=== PATIENT | female | born 1965 | race Caucasian/White ===

== ENCOUNTER 2021-09-18 18:59 | Inpatient (IN) | payer OTHER ==
[2021-09-18 20:36] VITALS: BMI 23.7
[2021-09-18] MEDS ORDERED: ACETAMINOPHEN 325 MG TABLET (FP) PO PRN ×2 (21:53)
[2021-09-18] MEDS ORDERED: LOPERAMIDE HCL 2 MG CAPSULE PO PRN (21:53)
[2021-09-18] MEDS ORDERED: IBUPROFEN 400 MG TABLET (FP) PO PRN (21:53)
[2021-09-18] MEDS ORDERED: MAGNESIUM HYDROX 2400MG/30ML ORAL SUSPENSION 30 ML CUP PO PRN (21:53)
[2021-09-18] MEDS ORDERED: ONDANSETRON *ODT* 4 MG TABLET SL PRN (21:53)
[2021-09-18] MEDS ORDERED: MAGNESIUM CITRATE 300 ML BOTTLE PO PRN (21:53)
[2021-09-18] MEDS ORDERED: MAG HYDROX/AL HYDROX/SIMETH 30 ML UNIT-DOSE CUP PO PRN (21:53)
[2021-09-18] MEDS ORDERED: BISMUTH SUBSALICYLATE 524 MG/30 ML PO PRN (21:53)
[2021-09-18] MEDS ORDERED: MENTHOL/PHENOL 1 EACH UD MM PRN (21:53)
[2021-09-18] MEDS ORDERED: chlordiazePOXIDE HCL 25 MG CAPSULE PO PRN (21:56)
[2021-09-19] MEDS: THIAMINE HCL 100 MG TABLET (FP) PO SCH ×2 (02:05→22:11)
[2021-09-19] MEDS: chlordiazePOXIDE HCL 25 MG CAPSULE PO SCH ×5 (02:05→22:12)
[2021-09-19] MEDS: PRENATAL VITAMINS W/ FOLIC ACID TABLET (FP) PO SCH (10:22)
[2021-09-19] MEDS: hydrOXYzine PAMOATE 25 MG CAPSULE (FP) PO PRN ×2 (10:24→22:12)
[2021-09-19 10:53] LABS: HEMATOCRIT 36.3 % (32.4-45.2); HEMOGLOBIN 12.4 GM/dL (10.7-15.3); MCH 35.1 pg (25.7-33.7); MEAN CELL VOLUME 103.2 fl (80-96); MEAN PLT VOLUME 6.8 fl (7.5-11.1); PLATELET COUNT 225 10^3/uL (134-434); RBC 3.52 M/mm3 (3.60-5.2); WHITE BLOOD COUNT 4.4 K/mm3 (4.0-10.0)
[2021-09-19 11:03] LABS: CALCIUM 8.8 mg/dL (8.5-10.1)
[2021-09-19 11:04] LABS: ALBUMIN 3.9 g/dl (3.4-5.0); BLOOD UREA NITROGEN 14.4 mg/dL (7-18)
[2021-09-19 11:07] LABS: CREATININE 0.8 mg/dL (0.55-1.3)
[2021-09-19 11:09] LABS: TOT PROT 6.9 g/dl (6.4-8.2)
[2021-09-19] MEDS: LISINOPRIL 5 MG TABLET PO SCH (18:01)
[2021-09-19] MEDS: SPIRONOLACTONE 25 MG TABLET PO SCH (18:01)
[2021-09-19] MEDS: MELATONIN 5 MG TABLETS PO PRN (22:12)
[2021-09-19] MEDS: METHOCARBAMOL 500 MG TABLET PO PRN (22:12)
[2021-09-20] MEDS: chlordiazePOXIDE HCL 25 MG CAPSULE PO SCH ×4 (06:27→22:11)
[2021-09-20] MEDS: GABAPENTIN 300 MG CAPSULE PO SCH (10:35)
[2021-09-20] MEDS: LISINOPRIL 5 MG TABLET PO SCH (10:35)
[2021-09-20] MEDS: SPIRONOLACTONE 25 MG TABLET PO SCH (10:35)
[2021-09-20] MEDS: PRENATAL VITAMINS W/ FOLIC ACID TABLET (FP) PO SCH (10:35)
[2021-09-20] MEDS ORDERED: ARTIFICIAL TEARS (POLYVINYL ALCOHOL) OPTH DROPS OU PRN (12:37)
[2021-09-20] MEDS: hydrOXYzine PAMOATE 25 MG CAPSULE (FP) PO PRN ×2 (15:45→20:17)
[2021-09-20] MEDS: THIAMINE HCL 100 MG TABLET (FP) PO SCH (22:11)
[2021-09-20] MEDS: MELATONIN 5 MG TABLETS PO PRN (22:11)
[2021-09-20] MEDS: METHOCARBAMOL 500 MG TABLET PO PRN (22:13)
[2021-09-21] MEDS ORDERED: chlordiazePOXIDE HCL 10 MG CAPSULE PO PRN
[2021-09-21] MEDS: chlordiazePOXIDE HCL 10 MG CAPSULE PO SCH ×2 (05:54→12:05)
[2021-09-21 09:07] VITALS: BP 107/76; PULSE 77; TEMP 98.3
[2021-09-21] MEDS: SPIRONOLACTONE 25 MG TABLET PO SCH (11:58)
[2021-09-21] MEDS: LISINOPRIL 5 MG TABLET PO SCH (11:58)
[2021-09-21] MEDS: PRENATAL VITAMINS W/ FOLIC ACID TABLET (FP) PO SCH (11:59)
[2021-09-21] MEDS: GABAPENTIN 300 MG CAPSULE PO SCH (11:59)
[2021-09-22] MEDS ORDERED: chlordiazePOXIDE HCL 10 MG CAPSULE PO SCH (05:00)
[2021-09-23] MEDS ORDERED: chlordiazePOXIDE HCL 10 MG CAPSULE PO ONE (05:00)
== END 2021-09-21 12:40 | disposition other institution (70) | DRG 775 ==
LOC: YASAS 18:59 → Y3N 09-19 01:32
PROVIDERS: ADMIT Allergy & Immunology; ATTEND Allergy & Immunology
PROC: HZ2ZZZZ Detoxification Services for Substance Abuse Treatment (ICD-10-PCS; principal; 2021-09-19)
DX: F10.230 Alcohol dependence with withdrawal, uncomplicated (principal); F19.24 Other psychoactive substance dependence with psychoactive substance-induced mood disorder; F41.9 Anxiety disorder, unspecified; F32.A Depression, unspecified; F90.9 Attention-deficit hyperactivity disorder, unspecified type; Z86.79 Personal history of other diseases of the circulatory system
CPT/HCPCS: 36415; 80053; 85027; 86780; 93005; 93010; C9803-CS; Q0162; U0003; U0005